=== PATIENT | male | born 1980 | race Caucasian/White ===

== ENCOUNTER 2019-03-30 14:56 | Emergency (ER) | payer MEDICAID ==
[~2019-03-30] VITALS: Ht 198.1 cm; Wt 89.8 kg
[2019-03-30 15:10] VITALS: BP 130/87
[2019-03-30] MEDS ORDERED: CHLO473M3 PO (16:02)
[2019-03-30] MEDS ORDERED: CLIN300C17 PO (16:02)
== END 2019-03-30 16:17 | disposition home or self-care (01) ==
LOC: ER 14:58
DX: K05.10 Chronic gingivitis, plaque induced (principal); K02.9 Dental caries, unspecified; F17.200 Nicotine dependence, unspecified, uncomplicated; Z88.5 Allergy status to narcotic agent; Z88.8 Allergy status to other drugs, medicaments and biological substances; Z79.2 Long term (current) use of antibiotics; Z79.899 Other long term (current) drug therapy
CPT/HCPCS: 99283

== ENCOUNTER 2019-05-02 14:12 | Emergency (ER) | payer MEDICAID ==
[~2019-05-02] VITALS: Ht 198.1 cm; Wt 91.4 kg
[~2019-05-02 14:12] MED LIST: CHLO473M3 PO; CLIN300C17 PO
[2019-05-02 14:28] VITALS: BP 128/77
[2019-05-02] MEDS ORDERED: PENI500T2 PO (16:54)
[2019-05-02] MEDS ORDERED: LIDOcaine Viscous 15ml cup MM PRN (17:10)
--- NOTE | 2019-05-02 17:18 | NUR ---
PT ASKED FOR PAIN MEDICATION, SAID TYLENOL AND MOTRIN WEREN'T WORKING. PROVIDER NOTIFIED, WAS GOING TO ORDER A LIDOCAINE SWISH AND SPIT. WHEN NURSE TOLD PT THIS, PT SAID THAT AT [facility] HE WAS GIVEN FLEXERIL, BACLOFEN AND SOMETHING ELSE FOR PAIN. PT STATES HE IS ALLERGIC TO OPIATES. PT LEFT, SAID HE WOULD GO BACK TO [facility]
== END 2019-05-02 17:16 | disposition home or self-care (01) ==
LOC: ER 14:12
DX: K04.7 Periapical abscess without sinus (principal); Z88.6 Allergy status to analgesic agent
CPT/HCPCS: 99283